=== PATIENT | female | born 1975 | race Two or more races ===

== ENCOUNTER 2017-10-10 10:36 | Outpatient (CLI) | payer OTHER | END 2017-10-10 11:00 | disposition home or self-care (01) | LOC: NUCLEAR 10:36 | DX: E05.90 Thyrotoxicosis, unspecified without thyrotoxic crisis or storm (principal) | CPT/HCPCS: 78012; A9531 ==

== ENCOUNTER 2017-10-11 11:13 | Outpatient (CLI) | payer OTHER | END 2017-10-11 13:00 | disposition home or self-care (01) | LOC: NUCLEAR 11:13 | DX: E05.90 Thyrotoxicosis, unspecified without thyrotoxic crisis or storm (principal) | CPT/HCPCS: 78013; A9512 ==

== ENCOUNTER → 2017-10-11 | Outpatient (CLI) | payer OTHER | END | disposition home or self-care (01) | LOC: LAB 13:01 | DX: Z32.00 Encounter for pregnancy test, result unknown (principal) ==

== ENCOUNTER → 2017-10-13 | Outpatient (CLI) | payer OTHER | END | disposition home or self-care (01) | LOC: NUCLEAR 08:11 | DX: E05.90 Thyrotoxicosis, unspecified without thyrotoxic crisis or storm (principal) | CPT/HCPCS: 79005; A9517 ==

== ENCOUNTER 2018-01-23 07:44 | Outpatient (CLI) | payer OTHER | END 2018-01-23 08:00 | disposition home or self-care (01) | LOC: LAB 07:44 | DX: N18.1 Chronic kidney disease, stage 1 (principal); N18.2 Chronic kidney disease, stage 2 (mild); N18.3 Chronic kidney disease, stage 3 (moderate); N18.4 Chronic kidney disease, stage 4 (severe); N18.5 Chronic kidney disease, stage 5; N18.6 End stage renal disease; I10 Essential (primary) hypertension; E11.21 Type 2 diabetes mellitus with diabetic nephropathy; R80.9 Proteinuria, unspecified ==

== ENCOUNTER 2018-01-23 08:34 | Outpatient (CLI) | payer OTHER | END 2018-01-23 09:03 | disposition home or self-care (01) | LOC: SONOGRAMA 08:34 | DX: K76.0 Fatty (change of) liver, not elsewhere classified (principal) ==

== ENCOUNTER 2018-02-06 23:49 | Emergency (ER) | payer OTHER ==
[~2018-02-06] VITALS: Ht 152.4 cm; Wt 77.1 kg
[2018-02-07] MEDS ORDERED: METROPOLOL 100 MG (00:14)
[2018-02-07] MEDS ORDERED: ZANTAC300 MG PO (04:32)
[2018-02-07] MEDS ORDERED: LEVSIN/SL0.125 MG SL (04:32)
== END 2018-02-07 05:05 | disposition home or self-care (01) ==
LOC: ER 23:49
DX: K29.70 Gastritis, unspecified, without bleeding (principal); R10.11 Right upper quadrant pain

== ENCOUNTER 2018-02-10 09:04 | Outpatient (CLI) | payer OTHER ==
[~2018-02-10 09:04] MED LIST: LEVSIN/SL0.125 MG SL; METROPOLOL 100 MG; ZANTAC300 MG PO
== END 2018-02-10 09:08 | disposition home or self-care (01) ==
LOC: LAB 09:04
DX: R68.89 Other general symptoms and signs (principal); I11.9 Hypertensive heart disease without heart failure; E78.2 Mixed hyperlipidemia; R31.9 Hematuria, unspecified; E03.8 Other specified hypothyroidism; E11.9 Type 2 diabetes mellitus without complications; E05.90 Thyrotoxicosis, unspecified without thyrotoxic crisis or storm; E04.8 Other specified nontoxic goiter